=== PATIENT | male | born 1955 | race Caucasian/White ===

== ENCOUNTER 2017-05-24 08:50 | Day surgery (SDC) | payer MEDICARE, MEDICAID ==
[2017-05-24] MEDS ORDERED: BUPIVACAINE 0.5% W/EPI MPF 30 ML VIAL IVP ONE (11:01)
[2017-05-24] MEDS ORDERED: LIDOCAINE 1% W/EPI 1:200,000 MPF 30ML SQ ONE (11:01)
[2017-05-24] MEDS ORDERED: DEXAMETHASONE PRESERVATIVE FREE 10MG/ML VIAL IV ONE (11:01)
[2017-05-24] MEDS ORDERED: LIDOCAINE 2% MDV (20MG/ML) 20ML VIAL IV ONE ×2 (14:00)
[2017-05-24] MEDS ORDERED: MIDAZOLAM HCL 2MG/2ML VIAL IV ONE ×2 (14:00)
[2017-05-24] MEDS ORDERED: FENTANYL PF 100MCG/2ML VIAL IV ONE ×2 (14:00)
[2017-05-24] MEDS ORDERED: PROPOFOL 10 MG/ML VIAL IV ONE ×2 (14:00)
--- NOTE | 2017-05-24 16:35 | Operative Note - [place] ---
DATE OF SURGERY: 05/24/17 PREOPERATIVE DIAGNOSIS: CERVICAL SPONDYLOSIS WITHOUT MYELOPATHY, ICD-10 CODE = M47.812. OPERATION: RADIOFREQUENCY RHIZOTOMY BILATERAL CERVICAL FACETS 4-5 AND 5- 6. SURGEON: ALVAREZ ARNOLD D.O. ANESTHESIA: LOCAL SEDATION. ANESTHESIA PROVIDER: AICHA OLIVERA CRNA INDICATION: This patient presents with primary neck pain. Examination shows tenderness cervical spine. Range of motion does cause pain in the neck with extension. Diagnostics show multiple levels of spondylosis. A facet series 75-85 % pain control. Due to the failure of therapy and success of facet series, he presents for rhizotomy for more long-term control. PROCEDURE: Intravenous line, vital sign monitoring, IV sedation, prepped, draped, sterile technique. Under imaging, facet levels at 4-5 and 5-6 cervical were identified and marked bilaterally. Skin infiltrated. A 20-gauge rhizotomy cannula positioned. Stimulation trials conducted. Rhizotomy burn performed. Local with anti-inflammatory into the sites. Topical antibiotics. Sterile dressing applied. We will monitor and evaluate. cc: [facility], [place], [place]. JOB NUMBER: [id number] MTDD
== END 2017-05-24 10:55 | disposition home or self-care (01) ==
LOC: SUR 08:50
PROVIDERS: ATTEND Pain Medicine Interventional Pain Medicine
DX: M47.812 Spondylosis without myelopathy or radiculopathy, cervical region (principal); J44.9 Chronic obstructive pulmonary disease, unspecified; Z72.0 Tobacco use; I10 Essential (primary) hypertension
CPT/HCPCS: 64633; 64634; 01936; J1100; J3010